=== PATIENT | female | born 1995 | race African-American/Black ===

== ENCOUNTER 2019-07-06 09:12 | Emergency (ER) | payer MEDICAID ==
[~2019-07-06] VITALS: Ht 160 cm; Wt 78.0 kg
[2019-07-06] MEDS ORDERED: SODIUM CHLORIDE 0.9% 1,000 ML IV ONE (09:27)
[2019-07-06] MEDS ORDERED: FAMOTIDINE 20MG/2ML VIAL IV ONE (09:30)
[2019-07-06] MEDS ORDERED: ONDANSETRON HCL 4MG/2ML INJ IV ONE (09:30)
[2019-07-06 10:18] LABS: HEMATOCRIT. 37.9 % (36.0-48.0); HEMOGLOBIN. 12.3 g/dL (12.0-16.0); MEAN CORPUSCULAR HEMOGLOBIN 28.9 pg (28.0-32.0); MEAN CORPUSCULAR VOLUME 89.1 fL (81.0-99.0); MEAN PLATELET VOLUME 9.9 fl (7.4-10.4); PLATELET 413 x1000/uL (130-400); RED BLOOD CELL COUNT 4.25 mill/uL (4.2-5.4); RED CELL DISTRIBUTION WIDTH 15.7 % (11.6-14.6)
[2019-07-06 10:20] LABS: PROTHROMBIN TIME 10.1 sec (9.6-11.0)
[2019-07-06 10:20] LABS: CLARITY URINE CLEAR (CLEAR); COLOR URINE YELLOW (YELLOW); KETONES URINE 3+ (NEGATIVE); LEUKOCYTE ESTERASE URINE NEGATIVE (NEGATIVE); NITRITE URINE NEGATIVE (NEGATIVE); OCCULT BLOOD URINE TRACE (NEGATIVE); PH URINE 6.5 (4.5-8.0); PROTEIN URINE NEGATIVE (NEGATIVE); SPECIFIC GRAVITY URINE 1.026 (1.005-1.030); UROBILINOGEN URINE 0.2 E.U./dL (0.2-1.0)
[2019-07-06 10:24] LABS: CHLORIDE 105 mEq/L (98-107)
[2019-07-06 10:26] LABS: HCG SCREEN NEGATIVE
[2019-07-06] MEDS ORDERED: INSULIN REGULAR (HUMULIN R) 300UNITS/3ML SUBCUT ONE (10:45)
[2019-07-06 10:51] LABS: PLATELET ESTIMATE INCREASED
[2019-07-06 11:01] LABS: BG BASE EXCESS -9.7 mmol/L (-2.0-2.0); BG CARBOXYHEMOGLOBIN 0.3 % (0.5-1.5); BG DEOXYHEMOGLOBIN 1.6 % (0.0-5.0); BG FRACTION INSPIRED OXYGEN 21; BG HCO3 ACT 10.4 mmol/L (22.0-26.0); BG METHEMOGLOBIN 0.3 % (0.0-1.5); BG OXYGEN SATURATION 98.4 % (92.0-98.5); BG OXYHEMOGLOBIN 97.8 % (94.0-97.0); BG PCO2 13.5 mmHg (35.0-45.0); BG PH 7.506 (7.350-7.450); BG PO2 123.3 mmHg (75.0-100.0); BG SAMPLE SITE LEFT RADIAL; BG TOTAL HEMOGLOBIN 12.2 g/dL (12.0-18.0); BG VENT MODE ROOM AIR
[2019-07-06] MEDS ORDERED: IOHEXOL-300 100 ML BOTTLE ONE (11:48)
[2019-07-06] MEDS ORDERED: METRONIDAZOLE 500 MG PREMIX 100 ML IV ONE (13:15)
[2019-07-06] MEDS ORDERED: CEFTRIAXONE 1 G PREMIX 50 ML IV ONE (13:15)
[2019-07-06 15:39] VITALS: BP 117/59
== END 2019-07-06 15:55 | disposition short-term general hospital (02) ==
LOC: ER 09:31 → CANBEDREQ 16:43
DX: E11.65 Type 2 diabetes mellitus with hyperglycemia (principal); K92.2 Gastrointestinal hemorrhage, unspecified; Z79.4 Long term (current) use of insulin
CPT/HCPCS: 36415; 36600; 74177; 80053; 81003; 81025; 82010; 82375; 82805; 82962; 83605; 83690; 84484; 84703; 85025; 85610; 86850; 86900; 86901; 93005; 96361; 96365; 96366; 96368; 96372; 99291; J0696; J1815; J2405; J3490; J7030; Q9967

== ENCOUNTER 2020-08-17 06:11 | Emergency (ER) | payer MEDICAID ==
[~2020-08-17] VITALS: Ht 162.6 cm; Wt 74.0 kg
[2020-08-17] MEDS ORDERED: SODIUM CHLORIDE 0.9% 1,000 ML IV ONE (07:00)
[2020-08-17] MEDS ORDERED: ONDANSETRON HCL 4MG/2ML INJ IV ONE (07:00)
[2020-08-17] MEDS ORDERED: ACETAMINOPHEN 325MG TABLET PO ONE (07:00)
[2020-08-17 07:18] LABS: CHLORIDE 104 mEq/L (98-107)
[2020-08-17 07:27] LABS: BASOPHILS % 0.2 % (0.0-2.0); EOSINOPHILS % 1.4 % (0.0-5.0); HEMATOCRIT. 36.8 % (36.0-48.0); HEMOGLOBIN. 12.1 g/dL (12.0-16.0); LYMPHOCYTES % 23.6 % (20.0-50.0); MEAN CORPUSCULAR HEMOGLOBIN 28.8 pg (28.0-32.0); MEAN PLATELET VOLUME 9.6 fl (7.4-10.4); MONOCYTES % 3.4 % (2.0-8.0); NEUTROPHILS % 71.4 % (40.0-76.0); PLATELET 421 x1000/uL (130-400); RED BLOOD CELL COUNT 4.19 mill/uL (4.2-5.4); RED CELL DISTRIBUTION WIDTH 14.7 % (11.6-14.6)
[2020-08-17 07:42] LABS: B-HCG QUANTITATIVE 15530 mIU/mL (<3)
[2020-08-17 09:36] LABS: CLARITY URINE CLOUDY (CLEAR); COLOR URINE DARK YELLOW (YELLOW); KETONES URINE 1+ (NEGATIVE); LEUKOCYTE ESTERASE URINE 1+ (NEGATIVE); NITRITE URINE NEGATIVE (NEGATIVE); OCCULT BLOOD URINE NEGATIVE (NEGATIVE); PH URINE 6.5 (4.5-8.0); PROTEIN URINE 1+ (NEGATIVE); SPECIFIC GRAVITY URINE 1.039 (1.005-1.030); UROBILINOGEN URINE 0.2 E.U./dL (0.2-1.0)
[2020-08-17 10:39] VITALS: BP 108/72
== END 2020-08-17 10:40 | disposition home or self-care (01) ==
LOC: ER 06:11
DX: O23.12 Infections of bladder in pregnancy, second trimester (principal); Z3A.18 18 weeks gestation of pregnancy; O20.0 Threatened abortion; O24.912 Unspecified diabetes mellitus in pregnancy, second trimester; O26.892 Other specified pregnancy related conditions, second trimester; R19.7 Diarrhea, unspecified
CPT/HCPCS: 36415; 76805; 80053; 81003; 83690; 84702; 85025; 86850; 86900; 86901; 93005; 96361; 96374; 99285; J2405; J7030

== ENCOUNTER 2025-07-01 17:19 | Emergency (ER) | payer MEDICAID ==
[~2025-07-01] VITALS: Ht 165.1 cm; Wt 73.0 kg
[2025-07-01 17:19] VITALS: O2SAT 100
[2025-07-01 17:42] VITALS: TEMP 36.8
[2025-07-01] MEDS: ONDANSETRON HCL 4MG/2ML INJ IV ONE (18:12)
[2025-07-01] MEDS: SODIUM CHLORIDE 0.9% 1,000 ML IV ONE (18:12)
[2025-07-01] MEDS: PANTOPRAZOLE SODIUM 40 MG/VIAL IV ONE (18:12)
[2025-07-01 18:27] LABS: BASOPHILS % 1.4 % (0.0-2.0); EOSINOPHILS % 0.1 % (0.0-5.0); HEMATOCRIT. 29.5 % (36.0-48.0); HEMOGLOBIN. 10.0 g/dL (12.0-16.0); LYMPHOCYTES % 32.6 % (20.0-50.0); MEAN PLATELET VOLUME 8.6 fl (7.4-10.4); MONOCYTES % 7.8 % (2.0-8.0); NEUTROPHILS % 58.1 % (40.0-76.0); PLATELET 285 x1000/uL (130-400); RED BLOOD CELL COUNT 3.41 mill/uL (4.2-5.4); RED CELL DISTRIBUTION WIDTH 15.1 % (11.6-14.6)
[2025-07-01 18:33] LABS: HCG SCREEN NEGATIVE
[2025-07-01] MEDS: METOCLOPRAMIDE HCL 10MG/2ML VIAL IV ONE (18:37)
[2025-07-01 18:39] LABS: CREATININE 0.8 mg/dL (0.6-1.0)
[2025-07-01 18:40] VITALS: TEMP 98.24
[2025-07-01 18:40] LABS: TROPONIN I HIGH SENSITIVITY < 4 ng/L (3.0-34); UREA NITROGEN BLOOD 12 mg/dL (9-23)
[2025-07-01 18:42] LABS: ASPARTATE AMINOTRANSFERASE 19 IU/L (<34); BILIRUBIN DIRECT 0.2 mg/dL (<=3.0); BILIRUBIN TOTAL 0.6 mg/dL (0.1-1.0); PROTEIN TOTAL 7.4 g/dL (6.0-8.3)
[2025-07-01] MEDS: MORPHINE SULFATE 4 MG/ML INJ (FOR IV/IM USE) IV ONE (18:52)
[2025-07-01 21:07] LABS: CLARITY URINE CLEAR (CLEAR); COLOR URINE YELLOW (YELLOW); GLUCOSE URINE NEGATIVE (NEGATIVE); KETONES URINE 3+ (NEGATIVE); LEUKOCYTE ESTERASE URINE NEGATIVE (NEGATIVE); NITRITE URINE NEGATIVE (NEGATIVE); OCCULT BLOOD URINE 2+ (NEGATIVE); PH URINE 8.0 (4.5-8.0); PROTEIN URINE 2+ (NEGATIVE); SPECIFIC GRAVITY URINE 1.016 (1.005-1.030); UROBILINOGEN URINE 0.2 E.U./dL (0.2-1.0)
[2025-07-01 21:38] LABS: BACTERIA URINE 1+; SQUAMOUS EPITHELIAL CELL URINE 1+ /lpf (RARE/1+); WBC URINE 0-2 /hpf (0-2)
[2025-07-01] MEDS ORDERED: TOPUD MT (22:56)
[2025-07-01] MEDS ORDERED: PROM25TA13 MT (22:56)
[2025-07-01] MEDS ORDERED: AZIT250T12 MT (22:56)
[2025-07-01 23:09] VITALS: BP 107/75; PULSE 91; RESP 12; O2SAT 100
== END 2025-07-01 23:20 | disposition home or self-care (01) ==
LOC: ER 17:29 → EDBEDREQ 18:21 → ER 23:20 → CMPBEDREQ 07-02 08:21
DX: K52.9 Noninfective gastroenteritis and colitis, unspecified (principal); E11.9 Type 2 diabetes mellitus without complications; F12.90 Cannabis use, unspecified, uncomplicated
CPT/HCPCS: 99285; 74176; 96365; 96375; 80076; 80048; 81003; 84703; 83690; 85025; 84484; 36415; 93005; J2765; J2405; J2470; J2270; J7030